=== PATIENT | male | born 1975 | race Caucasian/White ===

== ENCOUNTER 2016-11-26 11:13 | Emergency (ER) | END 2016-11-26 15:49 | disposition home or self-care (01) | CPT/HCPCS: 70450; 96372; 99283; 99284; A9270 ==

== ENCOUNTER 2016-11-29 14:48 | Outpatient (CLI) | payer MEDICARE, OTHER ==
[2016-11-29] MEDS ORDERED: GADOBUTROL 10 MMOL/10 ML VIAL IVP ONE (16:08)
== END 2016-11-29 14:49 | disposition home or self-care (01) ==
DX: M47.812 Spondylosis without myelopathy or radiculopathy, cervical region (principal); R29.810 Facial weakness
CPT/HCPCS: 70553; 72141; A9585